=== PATIENT | male | born 1960 | race Caucasian/White ===

== ENCOUNTER 2024-07-03 12:27 | Emergency (ER) | payer SELFPAY ==
[~2024-07-03] VITALS: Ht 175.3 cm; Wt 121.5 kg
[2024-07-03 12:31] VITALS: TEMP 97.9
--- NOTE | 2024-07-03 13:13 | RADIOLOGY REPORT ---
CLINICAL INDICATION: Finger Pain TECHNIQUE: 3-view right hand DI FINGER(S) Comparison: None FINDINGS/IMPRESSION: : There is no evidence of acute fracture or dislocation. Soft tissues are unremarkable.
[2024-07-03] MEDS: LIDOcaine 1% 30ml preserv. free vial SQ STA (13:35)
--- NOTE | 2024-07-03 14:02 | Physician Documentation ---
History of Present Illness ~ Chief Complaint: Laceration Stated Complaint: FINGER LAC Time Seen by MD: 12:42 HPI Old male presents to the ED with a complaint of laceration on his right middle finger. See smashed a propane tank on it causing a laceration. does not know when his last tetanus shot was. Medication Reconciliation Allergies: Coded Allergies: No Known Allergies (Unverified , 07/03/24) Review of Systems All Other Systems at this time: Reviewed and Negative ROS As stated above in the HPI, otherwise all systems are reviewed and negative. Physical Exam Vital Signs: Temperature: 97.9, Source: Oral, Heart Rate: 74, Respiratory Rate: 18, BP: 181/105, Pulse Oximetry: 95, Weight: 121.500 Physical Exam General: Alert, no apparent distress. HEENT: PERRL, EOMI, no injection, moist mucous membranes. Extremities: 4 cm laceration on the distal aspect of right middle finger Neurologic: Oriented x4. Skin: Normal color, warm and dry. No edema, no ecchymosis. Procedures Laceration/Wound Repair Laceration : Anesthesia: Lidocaine Prep: irrigated by physician Margins: revised Wound Repaired With: sutures Suture Size/Type: 4-0 Number of Superficial Sutures: 6 Tolerated Procedure Well?: yes, no complications Progress Results/Orders Results/Orders Orders - MANI SALMON DROP FORGER HELPER Finger(S) (07/03/24 12:39) Laceration/I&D Tray Set Up (07/03/24 ) Completed Orders - MANI SALMON DROP FORGER HELPER Finger(S) (07/03/24 12:39) Lidocaine 1% 30ml Vial (Xylocaine 1% Via (07/03/24 12:54) Vital Signs 07/03/24 12:31 Temp 97.9 Pulse 74 Resp 18 B/P (MAP) 181/105 Pulse Ox 95 Medical Decision Making Findings Finger repaired via sutures patient tolerated procedure well verbalized understanding of home care instructions Differential Dx:Considerations: Include: Abrasion, Avulsion, Contusion, Laceration, Fracture, Hematoma, Neurovascular injury, Retained foreign body, Other Departure Disposition: 01 HOME / SELF CARE / HOMELESS Impression: Primary Impression: Laceration Condition: Stable Discharge Instructions: Laceration Care, Adult, [id number] Additional Instructions: Sutures need to be removed in 7-10 days keep the area clean and dry with a bandage on it Referrals: NO PRIMARY CARE PROVIDER (PCP) Education Educated: Patient Educated regarding: diagnosis Signature Scribe Signature: f Attestation: The note accurately reflects work and decisions made by me.Mani Fregoso NP 07/03 14:03 MANI SALMON NP July 03, 2024 14:02
[2024-07-03] MEDS: TETanus/Pertussis (Acell)/Diphther VAC/PF (Tdap-Adult) 0.5ml syringe IMVAC ONE (14:30)
[2024-07-03 14:33] VITALS: BP 155/105; PULSE 71; RESP 18; O2SAT 97
== END 2024-07-03 14:41 | disposition home or self-care (01) ==
LOC: ER 12:28
DX: S61.212A Laceration without foreign body of right middle finger without damage to nail, initial encounter (principal); X58.XXXA Exposure to other specified factors, initial encounter; Y93.89 Activity, other specified; Y92.89 Other specified places as the place of occurrence of the external cause; Y99.8 Other external cause status
CPT/HCPCS: 12002; 73140; 90471; 90715; 99283; A6258; A6449